=== PATIENT | male | born 1965 | race African-American/Black ===

== ENCOUNTER 2023-03-17 01:39 | Emergency (ER) | payer SELFPAY ==
[~2023-03-17] VITALS: Ht 188 cm; Wt 79.4 kg
--- NOTE | 2023-03-17 02:22 | NUR ---
CALLED TO TRIAGE NAX1
--- NOTE | 2023-03-17 02:32 | NUR ---
BIBS FOR L GROIN PAIN S/P INGUINAL HERNIA REPAIR X16 DAYS AGO, PAIN 10/10, STATED HE NOTICED EDEMA TO SCROTUM SINCE AM. PT AAOX4, IN NAD, PLACED COMFORTABLY IN BED, VITALS CHECKED.
[2023-03-17] MEDS ORDERED: ONDANSETRON HCL/PF 4 MG/2 ML VIAL IVP ONE (03:00)
[2023-03-17] MEDS ORDERED: KETOROLAC TROMETHAMINE INJ 30 MG/ML VIAL IV ONE (03:00)
[2023-03-17] MEDS ORDERED: KETOROLAC TROMETHAMINE 15 MG/ML VIAL ONE (03:10)
[2023-03-17] MEDS ORDERED: ONDANSETRON HCL/PF 4 MG/2 ML VIAL ONE (03:11)
--- NOTE | 2023-03-17 03:19 | NUR ---
20GA TO LAC ESTABLISHED
--- NOTE | 2023-03-17 03:20 | NUR ---
BLOOD WORK COLLECTED AND SENT TO LAB
[2023-03-17] MEDS: IV NS 0.9% 1,000 ML BAG IV ONE ×2 (03:25→03:28)
[2023-03-17 03:33] LABS: BASOPHILS % (AUTO) 0.6 % (0.0-2.0); EOSINOPHILS % (AUTO) 2.5 % (0.0-6.0); HEMATOCRIT 35 % (39-51); HEMOGLOBIN 10.9 g/dL (13.5-17.5); LYMPHOCYTES # (AUTO) 2.2 K/uL (0.8-4.8); LYMPHOCYTES % (AUTO) 26.9 % (20.0-44.0); MEAN CORPUSCULAR HGB CONC 31 g/dl (31.0-36.0); MEAN CORPUSCULAR VOLUME 77 fL (80-96); MONOCYTES # (AUTO) 0.6 K/uL (0.1-1.30); MONOCYTES % (AUTO) 7.1 % (2.0-12.0); NEUTROPHILS % (AUTO) 62.9 % (43.0-81.0); PLATELET COUNT (AUTO) 158 K/uL (150-450); RED BLOOD CELL COUNT(AUTO) 4.56 MIL/uL (4.5-6.0)
[2023-03-17 03:41] LABS: CALCIUM, SERUM 9.3 mg/dL (8.5-10.1); CREATININE 1.1 mg/dL (0.6-1.3); POTASSIUM 4.9 mmol/L (3.5-5.1)
[2023-03-17 03:47] LABS: ALBUMIN 3.6 g/dL (3.4-5.0); BILIRUBIN,TOTAL 0.2 mg/dL (0.2-1.0); TOTAL PROTEIN, SERUM 7.1 g/dL (6.4-8.2)
[2023-03-17] MEDS ORDERED: IOHEXOL-300 100 ML VIAL IV ONE (03:57)
[2023-03-17] MEDS ORDERED: IV NS 0.9% 250 ML IV ONE (03:57)
--- NOTE | 2023-03-17 04:00 | NUR ---
18GA TO ZOË ADAN. 20GA TO NOELLE D/C'd.
--- NOTE | 2023-03-17 04:01 | NUR ---
PT TO CT ACCOMPANIED BY TECH
--- NOTE | 2023-03-17 04:10 | NUR ---
PT RETURNED FROM CT
[2023-03-17] MEDS ORDERED: METOCLOPRAMIDE HCL 10 MG/2 ML VIAL IV ONE (04:30)
[2023-03-17] MEDS ORDERED: DICYCLOMINE HCL INJ 20 MG/2 ML AMPUL IM ONE ×2 (04:30→04:32)
--- NOTE | 2023-03-17 04:41 | NUR ---
PT REMOVED OWN IV. STATED HE'S LEAVING AMA. APPROPRIATE FORM SIGNED. AWARE.
[2023-03-17 04:53] VITALS: BP 129/88
== END 2023-03-17 04:53 | disposition left against medical advice (07) ==
LOC: ER 01:42
DX: K40.90 Unilateral inguinal hernia, without obstruction or gangrene, not specified as recurrent (principal); R10.9 Unspecified abdominal pain
CPT/HCPCS: 99285; 74177; 96374; 96375; 96361; 85025; 80048; 83605; 83690; 80076; 36415; 85730; 96372; J2765; J2405; J7030; J7050; J0500; Q9967; J1885